=== PATIENT | male | born 1975 | race Caucasian/White ===

== ENCOUNTER 2017-06-21 14:48 | Emergency (ER) | payer MEDICAID ==
[~2017-06-21] VITALS: Ht 182.9 cm; Wt 99.8 kg
[2017-06-21] MEDS ORDERED: CITA40TA5 PO (15:17)
[2017-06-21] MEDS ORDERED: TRAZ150T49 PO (15:17)
[2017-06-21 15:51] LABS: BASO % 1 % (0-3); EOS % 1 % (0-3); HEMATOCRIT 43.8 % (39.0-53.0); HEMOGLOBIN 15.2 g/dL (13.0-17.5); LYMPH # 2.7 x10^3/uL (1.0-4.8); LYMPH % 29 % (24-48); MEAN CORPUSCULAR HEMOGLOBIN 32 pg (25-35); MEAN CORPUSCULAR HGB CONC 35 g/dL (31-37); MEAN CORPUSCULAR VOLUME 92 fL (79-100); MONO % 7 % (0-9); NEUT % 63 % (31-73); PLATELET COUNT 214 x10^3/uL (140-400); RED BLOOD COUNT 4.78 x10^6/uL (4.30-5.70); RED CELL DISTRIBUTION WIDTH 13.2 % (11.5-14.5); WHITE BLOOD COUNT 9.4 x10^3/uL (4.0-11.0)
--- NOTE | 2017-06-21 15:51 | EKG ---
[facility] [address] [place] [address] Test Date: 2017-06-21 Test Time: 15:07:41 Pat Name: ROLA PRESCOTT Department: Room: Gender: M Television Engineer: : 1975 Requested By: ALY LEW Order Number: [id number] Reading MD: Torri Michaels Measurements Intervals [place] Rate: 67 P: 0 OR: 172 QRS: 71 QRSD: 90 T: 15 QT: 398 QTc: 423 Interpretive Statements SINUS RHYTHM INCOMPLETE RIGHT BUNDLE BRANCH BLOCK QRS(T) CONTOUR ABNORMALITY CONSIDER ANTEROSEPTAL MYOCARDIAL DAMAGE ABNORMAL ECG Electronically Signed On 06-23-2017 19:12:20 CDT by Torri Michaels
--- NOTE | 2017-06-21 15:57 | ED.ADGEN ---
Past Medical History Past Medical History: No Pertinent History Past Surgical History: Other Additional Past Surgical Histo: hernia repair Additional Information: 1 ppd Alcohol Use: Sober Additional Information: sober 3 months Drug Use: Methamphetamine Social History Narrative: sober for 3 months Adult General Chief Complaint Chief Complaint: CHEST WALL PAIN HPI HPI Patient is a 41 year old man, with no significant past no history, who presents to the emergency department multiple complaints. Patient states that he 's been feeling ill for the past 2 days, states that he has been experiencing left-sided chest pain with deep inspiration and some shortness of breath with activity. Has some cough, but is nonproductive. Denies any fevers or chills, states that today he began experiencing a headache, and thought that might be due to hunger, states that he ate, and then experienced nausea, and episode of vomiting. He states that he only Colombian the chest pain deep inspiration, denies any weakness, states he occasionally has tingling in his feet. Patient smokes a pack per day, and has smoked for many years, states that he previously used methamphetamines but stopped 3 months ago. Denies alcohol use, any injuries , any travel, any swelling of the extremities, any rashes, surgery, history of DVT in himself or family members, states that his father was diagnosed with heart issues and with congestive heart failure in his early 60s. He states he is still experiencing a frontal headache, and nausea, no chest pain at this time. No photophobia, no vision changes, no vertiginous type symptoms. Review of Systems Review of Systems Constitutional: Denies fever or chills. [] Eyes: Denies change in visual acuity. [] HENT: Denies nasal congestion or sore throat. [] Respiratory: Cough that is nonproductive, and some shortness of breath with cough.] Cardiovascular: Sharp stabbing chest pain in the left upper chest, no edema. GI: Denies abdominal pain, bloody stools or diarrhea. Nausea, vomiting times one episode prior to the ED arrival. : Denies dysuria. [] Musculoskeletal: Denies back pain or joint pain. [] Integument: Denies rash. [] Neurologic: Denies focal weakness or sensory changes. []Complaint of frontal headache. Endocrine: Denies polyuria or polydipsia. [] Lymphatic: Denies swollen glands. [] Psychiatric: Denies depression or anxiety. [] Current Medications Current Medications Current Medications Medications (Trade) Dose Ordered Sig/Nia Start Time Stop Time Status Last Admin Dose Admin Acetaminophen (Tylenol) 1,000 mg 1X ONCE 06/21/17 16:00 06/21/17 16:01 DC 06/21/17 16:02 1,000 MG Albuterol/ Ipratropium (Duoneb) 3 ml 1X ONCE 06/21/17 16:00 06/21/17 16:01 DC 06/21/17 16:34 3 ML Ondansetron HCl (Zofran) 4 mg 1X ONCE 06/21/17 16:00 06/21/17 16:01 DC 06/21/17 16:02 4 MG Sodium Chloride 1,000 ml @ 1,000 mls/hr 1X ONCE 06/21/17 16:00 06/21/17 16:59 DC 06/21/17 16:02 1,000 MLS/HR Allergies Allergies Allergies Coded Allergies Type Severity Reaction Last Updated Verified No Known Drug Allergies 06/21/17 No Physical Exam Physical Exam Constitutional: Well developed, well nourished, no acute distress, non-toxic appearance. [] HENT: Normocephalic, atraumatic, bilateral external ears normal, oropharynx moist, no oral exudates, nose normal. [] Eyes: PERRLA, EOMI, conjunctiva normal, no discharge. [] Neck: Normal range of motion, no tenderness, supple, no stridor. [] Cardiovascular:Heart rate regular rhythm, no murmur , S1, S2, rubs or gallops.[] Lungs & Thorax: Patient with scattered wheezing noted throughout the lung luevano bilaterally, no rhonchi noted, mild crackles noted a bases bilaterally. No chest or crepitus or tenderness.[] Unable to reproduce symptoms with palpation of the left chest. Abdomen: Bowel sounds normal, soft, no rebound, rigidity, no guarding, no tenderness, no masses, no pulsatile masses. [] Skin: Warm, dry, no erythema, no rash. [] Back: No tenderness, no CVA tenderness. [] Extremities: No tenderness, no cyanosis, no clubbing, ROM intact, no edema. Negative Homans sign. [] Neurologic: Alert and oriented X 3, normal motor function, normal sensory function, no focal deficits noted. [] Psychologic: Affect normal, judgement normal, mood normal. [] Current Patient Data Vital Signs Vital Signs Date Time Temp Pulse Resp B/P (MAP) Pulse Ox O2 Delivery O2 Flow Rate FiO2 06/21/17 19:20 73 20 117/79 (92) 97 06/21/17 18:31 Room Air 06/21/17 15:11 98.0 98.0 Lab Values Laboratory Tests Test 06/21/17 15:25 06/21/17 16:43 06/21/17 17:00 06/21/17 18:25 White Blood Count 9.4 x10^3/uL (4.0-11.0) Red Blood Count 4.78 x10^6/uL (4.30-5.70) Hemoglobin 15.2 g/dL (13.0-17.5) Hematocrit 43.8 % (39.0-53.0) Mean Corpuscular Volume 92 fL (79-100) Mean Corpuscular Hemoglobin 32 pg (25-35) Mean Corpuscular Hemoglobin Concent 35 g/dL (31-37) Red Cell Distribution Width 13.2 % (11.5-14.5) Platelet Count 214 x10^3/uL (140-400) Neutrophils (%) (Auto) 63 % (31-73) Lymphocytes (%) (Auto) 29 % (24-48) Monocytes (%) (Auto) 7 % (0-9) Eosinophils (%) (Auto) 1 % (0-3) Basophils (%) (Auto) 1 % (0-3) Neutrophils # (Auto) 5.9 x10^3uL (1.8-7.7) Lymphocytes # (Auto) 2.7 x10^3/uL (1.0-4.8) Monocytes # (Auto) 0.6 x10^3/uL (0.0-1.1) Eosinophils # (Auto) 0.1 x10^3/uL (0.0-0.7) Basophils # (Auto) 0.0 x10^3/uL (0.0-0.2) D-Dimer (Chantelle) < 0.27 ug/mlFEU Sodium Level 142 mmol/L (136-145) Potassium Level 4.0 mmol/L (3.5-5.1) Chloride Level 106 mmol/L (98-107) Carbon Dioxide Level 29 mmol/L (21-32) Anion Gap 7 (6-14) Blood Urea Nitrogen 16 mg/dL (8-26) Creatinine 1.0 mg/dL (0.7-1.3) Estimated GFR (Cockcroft-Gault) 82.8 BUN/Creatinine Ratio 16 (6-20) Glucose Level 97 mg/dL (70-99) Calcium Level 9.0 mg/dL (8.5-10.1) Total Bilirubin 0.5 mg/dL (0.2-1.0) Aspartate Amino Transferase (AST) 24 U/L (15-37) Alanine Aminotransferase (ALT) 32 U/L (16-63) Alkaline Phosphatase 72 U/L (46-116) Troponin I Quantitative < 0.017 ng/mL (0.000-0.055) < 0.017 ng/mL (0.000-0.055) OJ-Bpk-E-Type Natriuretic Peptide 78 pg/mL (0-124) Total Protein 7.2 g/dL (6.4-8.2) Albumin 4.1 g/dL (3.4-5.0) Albumin/Globulin Ratio 1.3 (1.0-1.7) Lipase 291 U/L (73-393) Influenza Type A Antigen Negative (NEGATIVE) Influenza Type B Antigen Negative (NEGATIVE) Urine Collection Type Clean catch Urine Color Yellow Urine Clarity Turbid Urine pH 7.5 Urine Specific [place] 1.025 Urine Protein 30 mg/dL (NEG-TRACE) Urine Glucose (UA) Negative mg/dL (NEG) Urine Ketones (Stick) Trace mg/dL (NEG) Urine Blood Negative (NEG) Urine Nitrite Negative (NEG) Urine Bilirubin Negative (NEG) Urine Urobilinogen Dipstick 1.0 mg/dL (0.2 mg/dL) Urine Leukocyte Esterase Small (NEG) Urine RBC 0 /HPF (0-2) Urine WBC 1-4 /HPF (0-4) Urine Squamous Epithelial Cells None /LPF Urine Bacteria 0 /HPF (0-FEW) Urine Mucus Mod /LPF Urine Sperm Present /HPF Urine Opiates Screen Neg (NEG) Urine Methadone Screen Neg (NEG) Urine Barbiturates Neg (NEG) Urine Phencyclidine Screen Neg (NEG) Urine Amphetamine/Methamphetamine Neg (NEG) Urine Benzodiazepines Screen Neg (NEG) Urine Cocaine Screen Neg (NEG) Urine Cannabinoids Screen Neg (NEG) Urine Ethyl Alcohol Neg (NEG) Laboratory Tests 06/21/17 15:25 Laboratory Tests 06/21/17 15:25 EKG EKG EC: Sinus rhythm, heart rate 67 beats/minute, incomplete right bundle- branch block noted, with contour normality is noted in the anterior septal leads , with T-wave inversions in V3, QTC of 423, CO 172, QRS of 90, no ST depressions or elevations, abnormal ECG, does not meet STEMI criteria. As interpreted by me.[] Radiology/Procedures Radiology/Procedures [][facility] [address] [place] [address] IMAGING REPORT Signed PATIENT: ROLA PRESCOTT ACCOUNT: [id number] : 1975 LOCATION: ER AGE: 41 SEX: M EXAM STATUS: PRE ER ORD. PHYSICIAN: ALY LEW DO REASON: CP PROCEDURE: CHEST PA & LATERAL Chest, 2 views, 06/21/2017: History: Shortness of breath, chest pain The heart size and pulmonary vascularity are normal. No pulmonary infiltrates are seen. There is no evidence of pleural fluid. IMPRESSION: No acute cardiopulmonary abnormality is detected. DICTATED and SIGNED BY: LINDA OGDEN MD DATE: 06/21/17 1612 CC: ALY LEW DO ~ Course & Med Decision Making Course & Med Decision Making Pertinent Labs and Imaging studies reviewed. (See chart for details) Patient well-appearing, coughing, wheezing on examination. Received a nebulizer treatment, which he states significantly improved his symptoms. No hypoxia, no hypotension, he is afebrile in the ED. Laboratory studies obtained, including a flu swab which was negative, patient did have ketones in the urine, no other concerning findings identified. Chest x-ray was unremarkable. Patient with mild dehydration as stated, received IV fluids in the ED, along with Tessalon Perle. On reevaluation he is feeling much better, repeat troponin at 3 hours is also negative, did discuss with patient's heart school or, and there is no evidence of patient is experiencing any concerning cardiac or pulmonary condition, he is agreeable plan to follow-up with a primary care provider, given list of available providers at discharge, also instructions on smoking cessation and instructions to continue treatment for a viral illness. Patient was given a prescription for an albuterol inhaler, for Tessalon Perles, and naproxen. Patient was ambulated in the ED, walking without issue, without any concerning orthostasis or other vital sign changes. Patient agreeable plan for discharge home, encouraged to stay well-hydrated, get plenty of rest, follow-up as stated , she is medications as directed, and to return to the ED if any new or concerning symptoms develop. Patient discharged home in stable condition with plan and precautions as above. Dragon Disclaimer Dragon Disclaimer This electronic medical record was generated, in whole or in part, using a voice recognition dictation system. Departure Impression: Primary Impression: Cough Additional Impressions: Viral illness Tobacco abuse Disposition: 01 HOME, SELF-CARE Condition: IMPROVED Scripts Albuterol Sulfate (VENTOLIN HFA INHALER) 18 Gm Hfa.aer.ad 2 PUFF INH PRN Q4HRS Y for WHEEZING, #1 INHALER 0 Refills Prov: ALY LEW DO 06/21/17 Naproxen (NAPROXEN) 250 Mg Tablet 250 MG PO PRN BID Y for PAIN, #10 Prov: ALY LEW DO 06/21/17 Benzonatate (TESSALON PERLE) 100 Mg Capsule 100 MG PO PRN TID Y for COUGH, #18 CAP Prov: ALY LEW DO 06/21/17 Problem Qualifiers ALY LEW DO Jun 21, 2017 15:56
[2017-06-21] MEDS ORDERED: IV NORMAL SALINE 1000ML BAG 1,000 ML IV ONE (16:00)
[2017-06-21] MEDS ORDERED: ACETAMINOPHEN 500 MG TABLET PO ONE (16:00)
[2017-06-21] MEDS ORDERED: IPRATRPIUM/ALBUTEROL 0.5/2.5MG 3 ML NEBU. NEB ONE (16:00)
[2017-06-21] MEDS ORDERED: ONDANSETRON PF 4 MG/2 ML VIAL. IV ONE (16:00)
--- NOTE | 2017-06-21 16:15 | RAD ---
Chest, 2 views, 06/21/2017: History: Shortness of breath, chest pain The heart size and pulmonary vascularity are normal. No pulmonary infiltrates are seen. There is no evidence of pleural fluid. IMPRESSION: No acute cardiopulmonary abnormality is detected.
[2017-06-21 16:19] LABS: ALBUMIN 4.1 g/dL (3.4-5.0); ALBUMIN/GLOBULIN RATIO 1.3 (1.0-1.7); GFR 82.8; TOTAL BILIRUBIN 0.5 mg/dL (0.2-1.0); TOTAL PROTEIN 7.2 g/dL (6.4-8.2)
[2017-06-21 17:07] LABS: BILIRUBIN,URINE NEGATIVE (NEG); GLUCOSE,URINE NEGATIVE (NEG); NITRITE,URINE NEGATIVE (NEG); PH,URINE 7.5; PROTEIN,URINE 30 mg/dL (NEG-TRACE)
[2017-06-21 17:17] LABS: BARBITURATES NEG (NEG); BENZODIAZEPINES NEG (NEG); CANNABINOIDS NEG (NEG); COCAINE NEG (NEG); METHADONE NEG (NEG); OPIATES NEG (NEG); PHENCYCLIDINE NEG (NEG)
[2017-06-21 17:19] LABS: BACTERIA,URINE 0 /HPF (0-FEW); RBC,URINE 0 /HPF (0-2); SPERM,URINE PRESENT /HPF
[2017-06-21 18:00] LABS: OBC FLU VALID
[2017-06-21 19:20] VITALS: BP 117/79
[2017-06-21] MEDS ORDERED: NAPR250T6 PO (19:28)
[2017-06-21] MEDS ORDERED: BENZ100C PO (19:28)
[2017-06-21] MEDS ORDERED: VENTOLIN HFA18 GM INH (19:28)
== END 2017-06-21 19:57 | disposition home or self-care (01) ==
LOC: ER 14:48
DX: R05 Cough (principal); R69 Illness, unspecified; Z72.0 Tobacco use; R07.89 Other chest pain; R11.2 Nausea with vomiting, unspecified; Z98.890 Other specified postprocedural states
CPT/HCPCS: 36415; 71020; 80053; 80307; 81001; 83690; 83880; 84484; 85025; 85379; 87086; 87804; 93005; 94250; 94640; 96361; 96374; 99285; J2405; J7030; J7620; G0479

== ENCOUNTER → 2018-07-22 | Outpatient (CLI) | payer OTHER ==
[~2018-07-22] MED LIST: BENZ100C PO; CITA40TA5 PO; NAPR250T6 PO; TRAZ150T49 PO; VENTOLIN HFA18 GM INH
--- NOTE | 2018-07-22 16:51 | RAD ---
LUMBAR SPINE 2-3V History: Back pain Comparison: None. Findings: 3 views of the lumbar spine are submitted. There is mild levoscoliosis centered near L4-5. There appears to be transitional anatomy. There is very minimal posterior subluxation of what is considered L5 relative to S1 and L4 relative to L5. There is moderate degenerative disc disease at L4-5 and to a somewhat lesser degree at L5-S1. Lumbar vertebral body stature is maintained. There is facet degenerative change of the inferior lumbar spine. Impression: 1. There is transitional anatomy, very minimal posterior subluxation of what is considered L5 relative to S1 and L4 relative to L5. There is moderate degenerative disc disease at L4-5 and to lesser degree at L5-S1. There is mild lumbar levoscoliosis. Electronically signed by: Jabari Escamilla MD (07/22/2018 4:47 PM) [id number]
== END | disposition home or self-care (01) ==
LOC: RAD 10:41
PROVIDERS: ATTEND Surgery
DX: M51.36 Other intervertebral disc degeneration, lumbar region (principal); M41.86 Other forms of scoliosis, lumbar region; M43.5X6 Other recurrent vertebral dislocation, lumbar region
CPT/HCPCS: 72100

== ENCOUNTER 2018-12-20 18:43 | Emergency (ER) | payer SELFPAY ==
[~2018-12-20] VITALS: Ht 182.9 cm; Wt 99.8 kg
[2018-12-20 19:30] VITALS: BP 178/92
[2018-12-20] MEDS ORDERED: LIDOCAINE 1% PF 2 ML VIAL. INJ ONE (19:45)
[2018-12-20] MEDS ORDERED: NAPR-683 PO (20:20)
[2018-12-20] MEDS ORDERED: AMOX500C PO (20:20)
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
== END 2018-12-20 20:35 | disposition home or self-care (01) ==
LOC: ER 18:43
DX: S01.511A Laceration without foreign body of lip, initial encounter (principal); Y04.0XXA Assault by unarmed brawl or fight, initial encounter; Y93.89 Activity, other specified; Y92.89 Other specified places as the place of occurrence of the external cause; Y99.8 Other external cause status
CPT/HCPCS: 40650; 99283

== ENCOUNTER 2019-07-25 21:12 | Emergency (ER) | payer SELFPAY ==
[~2019-07-25] VITALS: Ht 182.9 cm; Wt 108.9 kg
[~2019-07-25 21:12] MED LIST changes: +AMOX500C PO; +NAPR-683 PO
--- NOTE | 2019-07-25 21:29 | PHYS DOC ---
Past Medical History Past Medical History: No Pertinent History Past Surgical History: Other Additional Past Surgical Histo: hernia repair Alcohol Use: Sober Drug Use: None Adult General Chief Complaint Chief Complaint: MULTIPLE COMPLAINTS HPI HPI Patient is a 43 year old male who presents with multiple complaints. The patient states that he's been having a cough and been short of breath for the last 3-4 days. The patient states that he started having a headache, nausea, vomiting, and diarrhea last night that went on into this afternoon. Patient states she's had loss of appetite and has not felt like eating or drinking all day. He reports his pain is 6 out of 10 in severity and it hurts when he coughs. The patient smokes one pack per day. He has a history of asthma. Review of Systems Review of Systems Constitutional: Reports fever or chills [] Eyes: Denies change in visual acuity, redness, or eye pain [] HENT: Denies nasal congestion or sore throat [] Respiratory: Reports cough and shortness of breath [] Cardiovascular: No additional information not addressed in HPI [] GI: Reports n/v/d, Denies abdominal pain. : Denies dysuria or hematuria [] Musculoskeletal: Denies back pain or joint pain [] Integument: Denies rash or skin lesions [] Neurologic: Reports headache, Denies focal weakness or sensory changes [] Endocrine: Denies polyuria or polydipsia [] Complete systems were reviewed and found to be within normal limits, except as documented in this note. Current Medications Current Medications Current Medications Medications (Trade) Dose Ordered Sig/Nia Start Time Stop Time Status Last Admin Dose Admin Albuterol/ Ipratropium (Duoneb) 3 ml 1X ONCE 07/25/19 21:30 07/25/19 21:31 DC 07/25/19 21:51 3 ML Methylprednisolone Sodium Succinate (SOLU-Medrol 125MG VIAL) 125 mg 1X ONCE 07/25/19 21:30 07/25/19 21:31 DC 07/25/19 21:53 125 MG Ondansetron HCl (Zofran) 4 mg 1X ONCE 07/25/19 21:30 07/25/19 21:31 DC 07/25/19 21:53 4 MG Sodium Chloride 1,000 ml @ 1,000 mls/hr 1X ONCE 07/25/19 21:30 07/25/19 22:29 DC 07/25/19 21:53 1,000 MLS/HR Allergies Allergies Allergies Coded Allergies Type Severity Reaction Last Updated Verified No Known Drug Allergies 06/21/17 No Physical Exam Physical Exam Constitutional: Well developed, well nourished, no acute distress, non-toxic appearance. [] HENT: Normocephalic, atraumatic, bilateral external ears normal, oropharynx moist, no oral exudates, nose normal. [] Eyes: PERRLA, EOMI, conjunctiva normal, no discharge. [] Neck: Normal range of motion, no tenderness, supple, no stridor. [] Cardiovascular:Heart rate regular rhythm, no murmur [] Lungs & Thorax: Bilateral breath sounds are diminished with wheezing on right side. Abdomen: Bowel sounds normal, soft, no tenderness, no masses, no pulsatile zeb s. [] Skin: Warm, dry, no erythema, no rash. [] Back: No tenderness, no CVA tenderness. [] Extremities: No tenderness, no cyanosis, no clubbing, ROM intact, no edema. [] Neurologic: Alert and oriented X 3, normal motor function, normal sensory function, no focal deficits noted. [] Psychologic: Affect normal, judgement normal, mood normal. [] Current Patient Data Vital Signs Vital Signs Date Time Temp Pulse Resp B/P (MAP) Pulse Ox O2 Delivery O2 Flow Rate FiO2 07/25/19 21:50 98 Room Air 07/25/19 21:20 97.9 94 17 115/88 (97) 97.9 Lab Values Laboratory Tests Test 07/25/19 21:48 07/25/19 22:00 White Blood Count 7.4 x10^3/uL (4.0-11.0) Red Blood Count 4.73 x10^6/uL (4.30-5.70) Hemoglobin 15.1 g/dL (13.0-17.5) Hematocrit 43.6 % (39.0-53.0) Mean Corpuscular Volume 92 fL (79-100) Mean Corpuscular Hemoglobin 32 pg (25-35) Mean Corpuscular Hemoglobin Concent 35 g/dL (31-37) Red Cell Distribution Width 12.5 % (11.5-14.5) Platelet Count 246 x10^3/uL (140-400) Neutrophils (%) (Auto) 43 % (31-73) Lymphocytes (%) (Auto) 44 % (24-48) Monocytes (%) (Auto) 8 % (0-9) Eosinophils (%) (Auto) 5 % (0-3) H Basophils (%) (Auto) 1 % (0-3) Neutrophils # (Auto) 3.1 x10^3/uL (1.8-7.7) Lymphocytes # (Auto) 3.3 x10^3/uL (1.0-4.8) Monocytes # (Auto) 0.6 x10^3/uL (0.0-1.1) Eosinophils # (Auto) 0.4 x10^3/uL (0.0-0.7) Basophils # (Auto) 0.1 x10^3/uL (0.0-0.2) Sodium Level 140 mmol/L (136-145) Potassium Level 3.9 mmol/L (3.5-5.1) Chloride Level 105 mmol/L (98-107) Carbon Dioxide Level 29 mmol/L (21-32) Anion Gap 6 (6-14) Blood Urea Nitrogen 14 mg/dL (8-26) Creatinine 1.1 mg/dL (0.7-1.3) Estimated GFR (Cockcroft-Gault) 73.4 BUN/Creatinine Ratio 13 (6-20) Glucose Level 90 mg/dL (70-99) Calcium Level 8.8 mg/dL (8.5-10.1) Total Bilirubin 0.3 mg/dL (0.2-1.0) Aspartate Amino Transferase (AST) 27 U/L (15-37) Alanine Aminotransferase (ALT) 37 U/L (16-63) Alkaline Phosphatase 76 U/L (46-116) Total Protein 7.3 g/dL (6.4-8.2) Albumin 3.8 g/dL (3.4-5.0) Albumin/Globulin Ratio 1.1 (1.0-1.7) Influenza Type A Antigen Negative (NEGATIVE) Influenza Type B Antigen Negative (NEGATIVE) Laboratory Tests 07/25/19 21:48 Laboratory Tests 07/25/19 21:48 EKG EKG [] Radiology/Procedures Radiology/Procedures [][facility] [address] [place] [address] IMAGING REPORT Signed PATIENT: ROLA ALCANTAR CACCOUNT: [id number] : 1975 LOCATION: ER AGE: 43 SEX: M EXAM STATUS: PRE ER ORD. PHYSICIAN: RICHARD ENGLISH APRN REASON: Asthma, cough, fever PROCEDURE: CHEST PA & LATERAL Exam: Chest 2 views INDICATION: Cough TECHNIQUE: Frontal and lateral views the chest Comparisons: 06/21/2017 FINDINGS: The cardiomediastinal silhouette and pulmonary vessels are within normal limits. The lung and pleural spaces are clear. IMPRESSION: No acute cardiopulmonary process. Electronically signed by: Charo Graves MD (07/25/2019 10:23 PM) [facility] DICTATED and SIGNED BY: CHARO GRAVES MD DATE: 07/25/192222 Course & Med Decision Making Course & Med Decision Making Pertinent Labs and Imaging studies reviewed. (See chart for details) Will get chest x-ray, labs, breathing treatment, and flu test. Will also give supportive care. Chest x-ray is unremarkable. Labs are unremarkable. Flu test is negative. Patient feels better after breathing treatment. Will d/c home. Dragon Disclaimer Dragon Disclaimer This electronic medical record was generated, in whole or in part, using a voice recognition dictation system. Departure Departure Impression: Primary Impression: Asthma exacerbation Additional Impression: Nausea and vomiting Disposition: 01 HOME, SELF-CARE Condition: STABLE Referrals: NO PCP (PCP) Patient Instructions: Asthma Attacks, Prevention, Asthma, Adult, Viral Gastroenteritis Additional Instructions: Thank you for visiting [facility]. We appreciate you trusting us with your care. If any additional problems come up don't hesitate to return to visit us. Please follow up with your primary care provider so they can plan additional care if needed and know about the problem that you had. If symptoms worsen come back to the Emergency Department. Any concerning symptoms that start such as chest pain, shortness of air, weakness or numbness on one side of the body, running high fevers or any other concerning symptoms return to the ER. Please fill your medications at any pharmacy and follow the prescription instructions. Scripts Ondansetron (ONDANSETRON ODT) 4 Mg Tab.rapdis 1 TAB PO PRN Q6-8HRS PRN for NAUSEA, #16 TAB Prov: RICHARD ENGLISH APRN 07/25/19 Albuterol Sulfate (VENTOLIN HFA INHALER) 18 Gm Hfa.aer.ad 2 PUFF INH PRN Q4HRS PRN for WHEEZING, #1 INHALER 0 Refills Prov: RICHARD ENGLISH APRN 07/25/19 Problem Qualifiers Primary Impression: Asthma exacerbation Asthma severity: moderate Asthma persistence: unspecified Qualified Codes: J45.901 - Unspecified asthma with (acute) exacerbation Additional Impression: Nausea and vomiting Vomiting type: unspecified Vomiting Intractability: unspecified Qualified Codes: R11.2 - Nausea with vomiting, unspecified RICHARD ENGLISH APRN Jul 25, 2019 21:29
[2019-07-25] MEDS ORDERED: ONDANSETRON PF 4 MG/2 ML VIAL. IV ONE (21:30)
[2019-07-25] MEDS ORDERED: methylPREDNISolone SOD SUCC PF 125 MG/2 ML VIAL. IV ONE (21:30)
[2019-07-25] MEDS ORDERED: IPRATRPIUM/ALBUTEROL 0.5/2.5MG 3 ML NEBU. NEB ONE (21:30)
[2019-07-25] MEDS ORDERED: IV NORMAL SALINE 1000ML BAG 1,000 ML IV ONE (21:30)
[2019-07-25 21:56] LABS: BASO # 0.1 x10^3/uL (0.0-0.2); BASO % 1 % (0-3); EOS # 0.4 x10^3/uL (0.0-0.7); EOS % 5 % (0-3); HEMATOCRIT 43.6 % (39.0-53.0); HEMOGLOBIN 15.1 g/dL (13.0-17.5); LYMPH # 3.3 x10^3/uL (1.0-4.8); LYMPH % 44 % (24-48); MEAN CORPUSCULAR HEMOGLOBIN 32 pg (25-35); MEAN CORPUSCULAR HGB CONC 35 g/dL (31-37); MEAN CORPUSCULAR VOLUME 92 fL (79-100); MONO # 0.6 x10^3/uL (0.0-1.1); MONO % 8 % (0-9); NEUT # 3.1 x10^3/uL (1.8-7.7); NEUT % 43 % (31-73); PLATELET COUNT 246 x10^3/uL (140-400); RED BLOOD COUNT 4.73 x10^6/uL (4.30-5.70); RED CELL DISTRIBUTION WIDTH 12.5 % (11.5-14.5); WHITE BLOOD COUNT 7.4 x10^3/uL (4.0-11.0)
[2019-07-25 22:08] LABS: CALCIUM 8.8 mg/dL (8.5-10.1); CREATININE 1.1 mg/dL (0.7-1.3); GFR 73.4; POTASSIUM 3.9 mmol/L (3.5-5.1)
[2019-07-25 22:13] LABS: ALBUMIN 3.8 g/dL (3.4-5.0); ALBUMIN/GLOBULIN RATIO 1.1 (1.0-1.7); TOTAL BILIRUBIN 0.3 mg/dL (0.2-1.0); TOTAL PROTEIN 7.3 g/dL (6.4-8.2)
[2019-07-25 22:25] LABS: INFLUENZA A PATIENT NEGATIVE (NEGATIVE); INFLUENZA B PATIENT NEGATIVE (NEGATIVE)
--- NOTE | 2019-07-25 22:26 | RAD ---
Exam: Chest 2 views INDICATION: Cough TECHNIQUE: Frontal and lateral views the chest Comparisons: 06/21/2017 FINDINGS: The cardiomediastinal silhouette and pulmonary vessels are within normal limits. The lung and pleural spaces are clear. IMPRESSION: No acute cardiopulmonary process. Electronically signed by: Charo Salazar MD (07/25/2019 10:23 PM) [facility]
[2019-07-25 22:49] VITALS: BP 113/81
[2019-07-25] MEDS ORDERED: ONDA4TAB12 PO (22:55)
[2019-07-25] MEDS ORDERED: VENTOLIN HFA18 GM INH (22:55)
== END 2019-07-25 23:22 | disposition home or self-care (01) ==
LOC: ER 21:12
DX: J45.901 Unspecified asthma with (acute) exacerbation (principal); R11.2 Nausea with vomiting, unspecified; R51 Headache; R19.7 Diarrhea, unspecified; Z79.899 Other long term (current) drug therapy
CPT/HCPCS: 36415; 71046; 80053; 85025; 87804; 94640; 96361; 96374; 96375; 99285; J2405; J2930; J7030; J7620

== ENCOUNTER → 2020-04-05 | Outpatient (CLI) | payer MEDICAID ==
[2019-09-05 11:00] VITALS: BP 122/79
[~2020-04-05] MED LIST changes: +APIX5TAB PO; +GABA300C18 PO; +ONDA4TAB12 PO; +TRAZ-123 PO
--- NOTE | 2020-04-05 16:32 | KCIC ---
EXAM: Cervical spine, 4 views. HISTORY: Pain. COMPARISON: None. FINDINGS: 4 views of cervical spine are obtained. There is no listhesis. The vertebral bodies are normal in height and the disc spaces are preserved. No suspicious osseous lesion is seen. IMPRESSION: No acute osseous finding. Electronically signed by: Radhika Vazquez MD (04/05/2020 4:29 PM) [id number]
--- NOTE | 2020-04-05 16:32 | KCIC ---
EXAM: Right knee, 3 views. HISTORY: Pain. COMPARISON: None. FINDINGS: 3 views of the right knee are obtained. There is no fracture, dislocation or subluxation. There is a bone island within the medial femoral condyle. There is no joint effusion. IMPRESSION: No acute osseous finding. Electronically signed by: Radhika Vazquez MD (04/05/2020 4:30 PM) [id number]
== END | disposition home or self-care (01) ==
LOC: KCIC 13:45
PROVIDERS: ATTEND Family Medicine
DX: M25.561 Pain in right knee (principal); M54.2 Cervicalgia; G89.29 Other chronic pain
CPT/HCPCS: 72040; 73562

== ENCOUNTER → 2020-06-13 | Outpatient (CLI) | payer OTHER ==
[2019-09-05 11:00] VITALS: BP 122/79
--- NOTE | 2020-06-13 15:53 | RAD ---
AP and lateral views lumbar spine 06/13/2020 INDICATION: Herniated disc, L3, L5. Back pain. COMPARISON STUDY: Lumbar spine radiograph July 12, 2018. Discussion: Transitional sacral anatomy noted. No evidence of acute fracture or alignment abnormality is identified. There is disc space narrowing at L3-L4, and L4-L5. Facet arthrosis appears to be present throughout the lumbar spine, more prominent inferiorly. Mild retrolisthesis of L4 with respect L5 noted. The appearance is similar to become progressively interim since comparison radiographs. IMPRESSION: 1. No evidence of acute osseous abnormality 2. Progression of degenerative changes most prominently within the inferior lumbar spine as described. If there is clinical concern for spinal stenosis or neural foraminal stenosis, consider further evaluation with MRI . Electronically signed by: Stefan Corley MD (06/13/2020 3:50 PM) [id number]
--- NOTE | 2020-06-13 17:33 | RAD ---
EXAM: CERVICAL SPINE 2-3V 06/13/2020 12:00 AM CLINICAL INDICATION:Neck pain COMPARISON:Cervical spine radiograph 04/05/2020 TECHNIQUE:AP and lateral views of cervical spine FINDINGS:No acute fracture. Alignment is normal. There is straightening of lordosis. Mild disc space narrowing throughout the cervical spine. There is mild uncovertebral joint proliferation at several levels, greatest at C3-C4. Facet joints are normal. Prevertebral soft tissues normal. IMPRESSION:Mild degenerative disc disease. Electronically signed by: Gay Saez MD (06/13/2020 5:31 PM) [id number]
== END | disposition home or self-care (01) ==
LOC: RT 14:19
PROVIDERS: ATTEND Surgery
DX: M47.816 Spondylosis without myelopathy or radiculopathy, lumbar region (principal); M43.16 Spondylolisthesis, lumbar region; M50.30 Other cervical disc degeneration, unspecified cervical region
CPT/HCPCS: 72040; 72100